=== PATIENT | female | born 1990 | race Caucasian/White ===

== ENCOUNTER 2024-12-02 21:00 | Observation (INO) ==
[2024-12-02 21:37] LABS: Hematocrit (blood only) 30.4 % (37.0-47.0); Hemoglobin 10.9 g/dl (12.0-16.0); Immature Granulocytes # (auto) 0.04 K/uL (0.01-0.20); Immature Granulocytes % (auto) 0.4 %; Mean Corpuscular Hemoglobin 32.7 pg (25.0-34.0); Mean Corpuscular Volume 91.3 fL (80.0-100.0); Platelet Count 219 K/uL (130-400); RDW Standard Deviation 41.5 fL (36.4-46.3); Red Blood Count 3.33 M/uL (4.20-5.40); White Blood Count 10.16 K/ul (4.8-10.8)
--- NOTE | 2024-12-02 21:51 | History & Physical Report ---
Date of Service December 02, 2024 Assessment & Plan (1) Placenta previa: (2) with 25 completed weeks gestation: Plan Know previa with bleeding throughout . No active bleeding on sse. fetus reassruing category one. no evidence of contractions on the monitor. Plan observation overnight. Respec if needed. Consider ultrasound in the office in the am for evaluation as she has not had one since 10/27/24. Previa noted but no official measurement of any clot. On US 09/19 at [facility] the clot measured 1.5x0.5 Patient understands if she requires transfer we do not have the ability to transfer to [facility]. OUr referral centers are [place] and [facility]. Depending on her clinical situation/progress, she may want to consider just going to [facility] with further episodes of bleeding as it is equadistant to our hospital. May want to consider TAMEKA there. Will hold on steroids for now as there does not appear to be any active bleeding at present. History of Present Illness Chief Complaint: previa, vaginal bleeding Primary Care Provider: Meghann Curtist Patient is a 34yowf with iup at 25 5/7 weeks who presents to labor and delivery with a known previa and bleeding. Patient was last seen in the office on 11/24. She notes that she has not had any significant bleeding for about two weeks. She notes that today she has been constipated and try to pass stool. She finally went to the and had onset of a gush of vaginal bleeding. She took pictures of her pad. There is some bloody mucous noted on the pad. She notes she also got crampy on the trip to the hospital. The pad she wore to the hospital has a streak of blood. Has known posterior previa with clot at the os. Patient notes her baby is very active. Patient notes her next visit at [facility] is the end of this month. Blood type B+. and Delivery Plans Hx IUGR and gHTN - Growth US at 28w. Complete Placenta Previa with hemorrhage US at 18 weeks shows a collection of fluid between amnion and cervix with blood flow MFM Consult 10/26/24 @ [facility]--as noted above Hx pre-diabetes - No gDM with last - 16w and 28 week gDM testing - declined 16wk gtt 09/29 ? prolonged qt - seen cardiology 10/01 due to chest pain after IV Zofran IV fluids at [facility] OB Labs: Blood Type B Positive 08/09/24 Antibody Screen NEGATIVE 08/09/24 Hgb 11.4 g/dl (12.0-16.0) L 11/12/24 Hct 31.5 % (37.0-47.0) L 11/12/24 MCV 91.8 fL (80.0-100.0) 11/12/24 Plt Count 204 K/uL (130-400) 11/12/24 Rubella IgG Antibody Immune (Immune) 08/09/24 Treponema pallidum Ab Negative (Negative) 08/09/24 Hep Bs Antigen Negative (Negative) 08/09/24 Hepatitis C Antibody Negative (Negative) 08/09/24 HIV 1&2 Ab/P24 Ag 4thGn Negative (Negative) 08/09/24 OB Optional Labs: Chlamydia trachomatis RNA Not Detected (NotDetected) 08/09/24 Neisseria gonorrhoeae RNA Not Detected (NotDetected) 08/09/24 Thyroid Stimulating Hormone (TSH) 2.270 uIu/ml (0.300-4.500) 06/09/24 low risk [facility] Allergies Allergy/AdvReac Type Severity Reaction Status Date / Time povidone-iodine AdvReac Mild Rash Verified 11/24/24 14:43 [From Betadine] metoclopramide [From Reglan] AdvReac Rash Verified 11/24/24 14:43 Home Medications Medication Instructions Recorded Confirmed Type prenat.vits,jackie,jut-vdnt-fnsyu 1 tab PO QAM 05/04/24 12/02/24 History ondansetron HCl 4 mg tablet 4 mg PO Q6H PRN nausea and 09/07/24 12/02/24 Rx vomiting #20 tabs omeprazole 10 mg capsule,delayed 10 mg PO DAILY #30 caps 09/15/24 12/02/24 Rx release promethazine 25 mg rectal 25 mg OK Q6H PRN nausea and 09/15/24 12/02/24 Rx suppository vomiting #12 ea aspirin 81 mg tablet 81 mg PO DAILY 12/02/24 12/02/24 History Patient History Medical History Varicella vaccination Missed IBS (irritable bowel syndrome) PCOS (polycystic ovarian syndrome) GERD (gastroesophageal reflux disease) occasional Depression Anxiety Infertility Hx of ectopic no surgical intervention, treated with a dose of methotrexate IBS (irritable bowel syndrome) Interstitial cystitis treated with bladder instillation PCOS (polycystic ovarian syndrome) Endometriosis Dry cough since ~04/22/24. followed with pcp, no cxr was done due the . no other s/s at this time other than a dry cough occasionally Surgical History S/P dilatation and curettage History of esophagogastroduodenoscopy (EGD) History of colonoscopy History of laparoscopy H/O oral surgery Family History Father Diabetes Mother Hypertension Grandmother (Paternal) Breast cancer Other No family history of adverse response to anesthesia Denies family history of Ovarian cancer Colorectal cancer Social History Smoking Status: Unknown if ever smoked Second Hand Exposure: No; Do You Dip or Chew Tobacco: No; Hx Alcohol Use: No Hx Substance Use: No Preferred Language: Divehi Communication Ability: Effective Visual Impairment: No Limitations Crude Tester Required: No Beliefs That Will Affect Care: None marital status: Single marital status details: Hung [phone] Current Living Situation: Family and Significant Other Current Living Situation Comment: lives with fob, daughter, cats, daughter changes litter current occupational status: employed 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 Date GA wks Lbr Lgth wt Sex Type del Anes Place Del Prov ? Comment Unknown 6 Aborted-Spontaneous april 16 Unknown Aborted-Spontaneous November 2018 Unknown 5 Ectopic January 2022 03/31/13 37 5lb 9oz F Epidu ral Other [facility] N IUGR, High Blood Pressure 05/17/24 8 Aborted-Spontaneous [employer] History noncontributory Physical Exam Constitutional: WD/WN, vitals as above Gastrointestinal (Abdomen): soft, nt, gravid Psychiatric: A+Ox3, euthymic affect Genitourinary: sse--minimal dark blood/mucous in the vagina, no active bleeding from the cervix. cx appears closed with length sve--deferred toco--none efm--150s with mod variability, accels present 10x10, no decels Coding Level of Care Code 55389 INT INP/OBS CARE 1/40MIN Diagnoses Placenta previa O44.00 with 25 completed weeks gestation Z3A.25
[2024-12-02 22:00] VITALS: BP 128/84; PULSE 100
[2024-12-02 22:25] VITALS: RESP 18; TEMP 98.6
--- NOTE | 2024-12-03 06:39 | Obstetrical Progress Note ---
Date of Service December 03, 2024 Assessment & Plan (1) with 25 completed weeks gestation: (2) Placenta previa: Plan no evidence of further bleeding. Plan d/c. f/u in the office early next week. Call with any further bleeding. Admission and Anticipated Discharge Date Admission Date: December 02, 2024 Subjective Patient had no bleeding at all overnight. Cramping has resolved. Feeling well. Physical Exam Physical Exam: toco--none efm--130s with mod variability, accels to 150s, no decels Results & Data Vital Signs (Past 12 Hours) Vital Signs Temp Pulse Resp BP 12/02/24 21:59 100 H 128/84 12/02/24 21:56 37 C 18 PG Care Time/CCT Total # of Minutes Spent Total Time Spent with Patient: Total time spent is greater than 50% in coordination of care (as documented) at patient's floor/unit and/or counseling patient: Coding Level of Care Code 72853 SUB INP/OBS CARE 05/22MIN Diagnoses with 25 completed weeks gestation Z3A.25 Placenta previa O44.00
--- NOTE | 2024-12-06 09:59 | Discharge Summary ---
Date of Service December 06, 2024 Admission HPI Per Admitting Provider Patient is a 34yowf with iup at 25 5/7 weeks who presents to labor and delivery with a known previa and bleeding. Patient was last seen in the office on 11/24. She notes that she has not had any significant bleeding for about two weeks. She notes that today she has been constipated and try to pass stool. She finally went to the and had onset of a gush of vaginal bleeding. She took pictures of her pad. There is some bloody mucous noted on the pad. She notes she also got crampy on the trip to the hospital. The pad she wore to the hospital has a streak of blood. Has known posterior previa with clot at the os. Patient notes her baby is very active. Patient notes her next visit at [facility] is the end of this month. Blood type B+. and Delivery Plans Hx IUGR and gHTN - Growth US at 28w. Complete Placenta Previa with hemorrhage US at 18 weeks shows a collection of fluid between amnion and cervix with blood flow MFM Consult 10/26/24 @ [facility]--as noted above Hx pre-diabetes - No gDM with last - 16w and 28 week gDM testing - declined 16wk gtt 09/29 ? prolonged qt - seen cardiology 10/01 due to chest pain after IV Zofran IV fluids at [facility] OB Labs: Blood Type B Positive 08/09/24 Antibody Screen NEGATIVE 08/09/24 Hgb 11.4 g/dl (12.0-16.0) L 11/12/24 Hct 31.5 % (37.0-47.0) L 11/12/24 MCV 91.8 fL (80.0-100.0) 11/12/24 Plt Count 204 K/uL (130-400) 11/12/24 Rubella IgG Antibody Immune (Immune) 08/09/24 Treponema pallidum Ab Negative (Negative) 08/09/24 Hep Bs Antigen Negative (Negative) 08/09/24 Hepatitis C Antibody Negative (Negative) 08/09/24 HIV 1&2 Ab/P24 Ag 4thGn Negative (Negative) 08/09/24 OB Optional Labs: Chlamydia trachomatis RNA Not Detected (NotDetected) 08/09/24 Neisseria gonorrhoeae RNA Not Detected (NotDetected) 08/09/24 Thyroid Stimulating Hormone (TSH) 2.270 uIu/ml (0.300-4.500) 06/09/24 low risk [facility] Course (1) with 25 completed weeks gestation: (2) Placenta previa: (3) Spotting affecting : Plan On SSE, there was some blood tinged mucous, no active bleeding, cx closed wiht length. Patient was monitored overnight. Fetus category one. No uterine activity recorded and no further bleeding noted. Patient was d/c home in the am. She has appt with [facility] the end of the month. Will have appt early in the week with us and ultrasound. Precautions reviewed. Coding Level of Care Code 22316 IN/OBS DISCH 30 MIN/LESS Diagnoses with 25 completed weeks gestation Z3A.25 Placenta previa O44.00 Spotting affecting O26.859
== END 2024-12-03 06:55 | disposition home or self-care (01) ==
LOC: 4S1 21:00 → OPB 21:00 → 4S1 21:04